=== PATIENT | male | born 1985 | race Caucasian/White ===

== ENCOUNTER 2018-10-07 09:06 | Emergency (ER) | payer OTHER ==
[2018-10-07 09:16] VITALS: TEMP 98.3; BMI 48.5
--- NOTE | 2018-10-07 10:10 | PDOC ---
Rapid Medical Evaluation Chief Complaint: Pain, Acute Time Seen by Provider: 10/07/18 09:29 Medical Evaluation: Allergies Allergy/AdvReac Type Severity Reaction Status Date / Time No Known Allergies Allergy Verified 10/07/18 09:16 Vital Signs Temp Pulse Resp BP Pulse Ox 98.3 F 80 18 122/76 98 10/07/18 09:12 10/07/18 09:12 10/07/18 09:12 10/07/18 09:12 10/07/18 09:12 10/07/18 10:08 33 yo obese M w/ pre diabetes, HTN, HLD (not on meds), comes in c/o sudden onset of L sided shoulder pain last night, radiating to the L side of the chest , associated with "mild sweating " from pain. NO nausea/vomiting/dizziness/neck pain. No prior h/o similar symptoms. Chest Pain is 10/10 and is associated with L arm "pulsations". Pt will need EKG, line labs, repeat trops, and will be seen in the main ER. Pt found to need higher level of care, will not be seen in fast track. Dr. Cheri fraire 10/07/18 10:11 Discharge Disposition - Diagnosis Shoulder pain, left Qualifiers: Chronicity: acute Qualified Code(s): M25.512 - Pain in left shoulder - Referrals Referrals: Gennaro Vargas MD [Primary Care Provider] - - Patient Instructions - Post Discharge Activity
[2018-10-07] MEDS ORDERED: KETOROLAC TROMETHAMINE 15 MG/ML VIAL IM ONE (10:18)
--- NOTE | 2018-10-07 10:24 | PDOC ---
History of Present Illness - General Chief Complaint: Pain, Acute Stated Complaint: LT ARM PAIN Time Seen by Provider: 10/07/18 09:29 - History of Present Illness Initial Comments: 10/07/18 10:19 33 M with h/o pre-DM, HTN, HLD presenting to ED with L shoulder pain radiating to his chest since yesterday. Pt states that it started while at rest. It is worse with movement of his L arm. It is not pleuritic, not exertional. Pt denies any SOB. Denies N/V. Endorses some diaphoresis. Denies abdominal pain. Denies any injury or trauma to his shoulder. Pt denies smoking. Endorses family history of [place] (father). Past History - Past Medical History Allergies/Adverse Reactions: Allergies Allergy/AdvReac Type Severity Reaction Status Date / Time No Known Allergies Allergy Verified 10/07/18 09:16 Home Medications: Ambulatory Orders Naproxen 500 mg PO BID PRN #14 tablet 10/07/18 COPD: No Other medical history: defect left arm - Suicide/Smoking/Psychosocial Hx Smoking History: Never smoked Review of Systems - Review of Systems Comments:: 10/07/18 10:22 "GENERAL/CONSTITUTIONAL: No fever or chills. No weakness. HEAD, EYES, EARS, NOSE AND THROAT: No change in vision. No ear pain or discharge. No sore throat. CARDIOVASCULAR: + chest pain, no shortness of breath, no loss of consciousness RESPIRATORY: No cough, wheezing, or hemoptysis. GASTROINTESTINAL: No nausea, vomiting, diarrhea or constipation. GENITOURINARY: No dysuria, frequency, or change in urination. MUSCULOSKELETAL: + L shoulder pain. No neck or back pain. SKIN: No rash NEUROLOGIC: No vertigo, no change in strength/sensation. ENDOCRINE: No increased thirst. No abnormal weight change. HEMATOLOGIC/LYMPHATIC: No anemia, easy bleeding, or history of blood clots. ALLERGIC/IMMUNOLOGIC: No hives or skin allergy. *Physical Exam - Vital Signs Last Vital Signs Temp Pulse Resp BP Pulse Ox 98.3 F 80 18 122/76 98 10/07/18 09:12 10/07/18 09:12 10/07/18 09:12 10/07/18 09:12 10/07/18 09:12 - Physical Exam Comments: 10/07/18 10:22 GENERAL: Awake, alert, and fully oriented, in no acute distress. HEAD: No signs of trauma EYES: PERRLA, EOMI, sclera anicteric, conjunctiva clear ENT: Auricles normal inspection, hearing grossly normal, nares patent, oropharynx clear without exudates. Moist mucosa NECK: Nontender, no stepoffs, Normal ROM, supple, no lymphadenopathy, JVD, or masses LUNGS: Breath sounds equal, clear to auscultation bilaterally. No wheezes, and no crackles HEART: Regular rate and rhythm, normal S1 and S2, no murmurs, rubs or gallops ABDOMEN: Soft, nontender, normoactive bowel sounds. No guarding, no rebound. No masses EXTREMITIES: + posterior L shoulder tenderness, full passive ROM, active ROM limited 2/2 pain NEUROLOGICAL: Cranial nerves II through XII intact. 5/5 strength and sensation in all extremities, Normal speech, normal gait, normal cerebellar function SKIN: Warm, Dry, normal turgor, no rashes or lesions noted. Heart Score/ECG Review - History History: Slightly suspicious - Electrocardiogram EKG: Normal - Age Age: </= 45 - Risk Factors Risk Factors Heart Score: Yes Hx Hypercholesterolemia, Yes Hx Hypertension, Yes Hx Diabetes, Yes Positive family hx of cardiac disease Based on the list above the patient has:: >/=3 risk factors or Hx atherosclerotic disease - Troponin Troponin: </= normal limit - Score Heart Score - Total: 2 - ECG Impressions Comment:: 10/07/18 11:24 NSR, no ALEXA/STDs, no TWIs, axis wnl, intervals wnl, rate 78 ED Treatment Course - LABORATORY CBC & Chemistry Diagram: 10/07/18 10:50 10/07/18 10:50 - RADIOLOGY Radiology Studies Ordered: Category Date Time Status CHEST PA & LAT [RAD] Stat Radiology 10/07/18 10:12 Ordered SHOULDER-LEFT [RAD] Stat Radiology 10/07/18 10:17 Ordered Medical Decision Making - Medical Decision Making 10/07/18 10:23 33 M with L shoulder pain radiating to chest. Suspect msk pain as it is exacerbated by movement of L arm and reproducible w palpation. However, given pt 's multiple comorbidities, will r/o ACS. Pt with no PE risk factors, PERC score 0. - Labs, trop - CXR, shoulder XR - EKG - Toradol 10/07/18 11:54 Labs wnl. Single trop sufficient for ACS r/o given normal EKG and onset of pain >24 hours ago. XRs negative Suspect msk pain Will DC with ortho f/u Pt is well appearing, with normal vitals. Clinically stable for DC at this time. I discussed the physical exam findings, ancillary test results and final diagnoses with the patient. I answered all of the patient's questions. The patient was satisfied with the care received and felt comfortable with the discharge plan and treatment plan. The patient agrees to follow up with the primary care physician within 24-72 hours. *DC/Admit/Observation/Transfer Diagnosis at time of Disposition: Shoulder pain, left Qualifiers: Chronicity: acute Qualified Code(s): M25.512 - Pain in left shoulder - Discharge Dispostion Disposition: HOME - Prescriptions Prescriptions: Naproxen 500 mg PO BID PRN #14 tablet PRN Reason: Pain - Referrals Referrals: Gennaro Vargas MD [Primary Care Provider] - Jayson Foster MD [Staff Physician] - - Patient Instructions Printed Discharge Instructions: DI for Shoulder Pain Additional Instructions: Follow up with an orthopedic surgeon for further evaluation of your shoulder pain. Call the number provided to make an appointment. If you experience worsening pain, chest pain, shortness of breath, or any other concerning symptoms, return to the ER immediately. Alycia un seguimiento con un cirujano ortopdico para haresh evaluacin adicional de mitchell dolor de hombro. Llame al nmero proporcionado para hacer haresh hany. Si experimenta un empeoramiento del dolor, dolor en el pecho, dificultad para respirar o cualquier otro sntoma relacionado, vuelva a la francisco de emergencias inmediatamente. Print Language: MAORI - Post Discharge Activity Forms/Work/School Notes: Back to Work - Attestations Physician Attestion: 10/07/18 12:01 I, Dr. Sandip Alonzo MD, attest that this document has been prepared under my direction and personally reviewed by me in its entirety. I further attest, that it accurately reflects all work, treatment, procedures and medical decision -making performed by me.
[2018-10-07] MEDS ORDERED: KETOROLAC TROMETHAMINE 15 MG/ML VIAL ONE (10:38)
[2018-10-07 11:09] LABS: BASO % 0.5 % (0-2.0); EOS % 1.8 % (0-4.5); HEMATOCRIT 42.2 % (35.4-49); HEMOGLOBIN 14.3 GM/dL (11.7-16.9); LYMPH % 26.9 % (8-40); MCH 29.5 pg (25.7-33.7); MCHC 33.8 g/dl (32.0-35.9); MEAN CELL VOLUME 87.4 fl (80-96); MEAN PLT VOLUME 7.7 fl (7.5-11.1); NEUT % 63.8 % (42.8-82.8); PLATELET COUNT 297 K/MM3 (134-434); RBC 4.83 M/mm3 (4.00-5.60); RDW 14.4 % (11.9-15.9); WHITE BLOOD COUNT 8.5 K/mm3 (4.0-10.0)
[2018-10-07 11:28] LABS: ALK PHOS 109 U/L (45-117); ANION GAP 7 MMOL/L (8-16); BILIRUBIN,TOTAL 0.3 mg/dL (0.2-1); BLOOD UREA NITROGEN 10 mg/dL (7-18); CALCIUM 8.6 mg/dL (8.5-10.1); CHLORIDE 105 mmol/L (98-107); CO2 28 mmol/L (21-32); CREATININE 0.8 mg/dL (0.55-1.3); GLUCOSE,RANDOM 169 mg/dL (74-106); POTASSIUM 3.7 mmol/L (3.5-5.1); SGOT/AST 19 U/L (15-37); SGPT/ALT 22 U/L (13-61); SODIUM 141 mmol/L (136-145); TOT PROT 7.9 g/dl (6.4-8.2)
[2018-10-07 12:23] VITALS: BP 110/72; PULSE 68
== END 2018-10-07 12:23 | disposition home or self-care (01) ==
LOC: JERFT 09:06 → JER 09:06
PROC: 3E0233Z Introduction of Anti-inflammatory into Muscle, Percutaneous Approach (ICD-10-PCS; principal; 2018-10-07)
DX: M25.512 Pain in left shoulder (principal)
CPT/HCPCS: 36415; 71046-TC-FY; 73030-TC-LT-FY; 80053; 82550; 84484; 85025; 96372; 99281-25

== ENCOUNTER 2022-09-24 11:53 | Emergency (ER) | payer OTHER ==
[2022-09-24 12:10] VITALS: BP 139/74; PULSE 90; RESP 18; TEMP 99; BMI 51.7
[2022-09-24] MEDS ORDERED: diphenhydrAMINE HCL 25 MG CAPSULE (FP) PO ONE ×2 (13:04→13:15)
[2022-09-24] MEDS ORDERED: DEXAMETHASONE SOD PHOSPHATE 10 MG/1 ML VIAL IM ONE (13:05)
[2022-09-24] MEDS ORDERED: clonazePAM 0.5 MG TABLET PO ONE (13:14)
[2022-09-24] MEDS ORDERED: DEXAMETHASONE SOD PHOSPHATE 10 MG/1 ML VIAL ONE (13:16)
[2022-09-24] MEDS ORDERED: ALBUTEROL SO4 2.5/IPRATROPIUM 0.5 INH SOL 3 ML VIAL.NEB. NEB ONE ×3 (13:24→13:53)
== END 2022-09-24 14:46 | disposition home or self-care (01) ==
LOC: JERFT 11:53
PROC: 3E0F7GC Introduction of Other Therapeutic Substance into Respiratory Tract, Via Natural or Artificial Opening (ICD-10-PCS; principal; 2022-09-24)
PROC: 3E0F7GC Introduction of Other Therapeutic Substance into Respiratory Tract, Via Natural or Artificial Opening (ICD-10-PCS; 2022-09-24)
PROC: 3E023GC Introduction of Other Therapeutic Substance into Muscle, Percutaneous Approach (ICD-10-PCS; 2022-09-24)
DX: J30.2 Other seasonal allergic rhinitis (principal); R05.1 Acute cough
CPT/HCPCS: 99284-25; J1100

== ENCOUNTER 2022-09-27 00:31 | Emergency (ER) | payer OTHER ==
[2022-09-27 00:40] VITALS: BP 119/79; PULSE 103; RESP 20; BMI 50.1
[2022-09-27 00:46] VITALS: TEMP 98.7
[2022-09-27] MEDS ORDERED: DEXAMETHASONE SOD PHOSPHATE 10 MG/1 ML VIAL IM ONE (01:16)
[2022-09-27] MEDS ORDERED: ALBUTEROL SO4 2.5/IPRATROPIUM 0.5 INH SOL 3 ML VIAL.NEB. NEB ONE ×2 (01:16→01:26)
[2022-09-27] MEDS ORDERED: DEXAMETHASONE SOD PHOSPHATE 10 MG/1 ML VIAL ONE (01:26)
[2022-09-27] MEDS ORDERED: IBUPROFEN 600 MG TABLET (FP) PO ONE ×2 (03:05→03:15)
== END 2022-09-27 03:27 | disposition home or self-care (01) ==
LOC: JER 00:31
PROC: 3E0233Z Introduction of Anti-inflammatory into Muscle, Percutaneous Approach (ICD-10-PCS; principal; 2022-09-27)
PROC: 3E0F7GC Introduction of Other Therapeutic Substance into Respiratory Tract, Via Natural or Artificial Opening (ICD-10-PCS; 2022-09-27)
DX: J10.1 Influenza due to other identified influenza virus with other respiratory manifestations (principal); R05.1 Acute cough; Z20.822 Contact with and (suspected) exposure to COVID-19
CPT/HCPCS: 0241U-QW; 71046-TC-FY; 99284-25; J1100